=== PATIENT | female | born 1970 ===

== ENCOUNTER 2018-03-25 08:54 | Outpatient (CLI) | payer OTHER ==
--- NOTE | 2018-03-25 12:21 | Diagnostic Imaging Report ---
Indication: Left wrist pain Findings: 3 views of the left wrist were obtained. No acute fractures appreciated. There is evidence of arthrosis with narrowing of the radiocarpal joint and several of the intercarpal joints appear narrowed with the subchondral sclerosis. No malalignment is identified. IMPRESSION: No acute injury appreciated. 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
--- NOTE | 2018-03-25 12:24 | Diagnostic Imaging Report ---
Indication: Foot pain Comparison: None Findings: 3 views of the left foot were obtained. No acute fractures, malalignment, erosions or periostitis are identified. Soft tissues are unremarkable. Impression: No acute findings
--- NOTE | 2018-03-25 12:25 | Diagnostic Imaging Report ---
Indication: Pain Knee pain/trauma 3 views of the right knee were obtained. Findings: No acute fracture, malalignment, or joint effusion are identified. Joint space is relatively well-maintained. Impression: Negative for acute findings.
--- NOTE | 2018-03-25 12:26 | Diagnostic Imaging Report ---
Indication: Hand pain. Findings: 3 views of the left hand were obtained. No acute fracture is identified. 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 IMPRESSION: No acute injury
--- NOTE | 2018-03-25 12:27 | Diagnostic Imaging Report ---
Indication: Chest pain Comparison: None 2 views of the chest obtained. Findings: Cardiomediastinal silhouette and pulmonary vascularity are within normal limits for age. The diaphragmatic contour is smooth and costophrenic angles are sharp. No pleural effusions are identified. The bones are unremarkable. Impression: No acute disease
--- NOTE | 2018-03-25 12:27 | Diagnostic Imaging Report ---
Indication: Right hand pain Findings: 3 views of the right hand were obtained. No acute fractures identified. There is no obvious malalignment within the hand. The soft tissues are unremarkable. IMPRESSION: No acute injury appreciated
--- NOTE | 2018-03-25 12:29 | Diagnostic Imaging Report ---
Indication: Right wrist pain Findings: 3 views of the right wrist were obtained. No acute fractures, erosions or periostitis are identified. Soft tissues are unremarkable. The scapholunate distance appears slightly widened. There may be mild volar tilt of the lunate. Impression: No acute findings. Suggestion of a scapholunate ligament disruption. Please correlate clinically. This this is most likely a degenerative chronic process.
== END 2018-03-25 10:54 | disposition home or self-care (01) ==
LOC: EDBD 08:54 → RAD 08:54
PROVIDERS: ATTEND Internal Medicine Rheumatology
DX: R05 Cough (principal); R07.9 Chest pain, unspecified; M25.572 Pain in left ankle and joints of left foot; M25.541 Pain in joints of right hand; M25.561 Pain in right knee; M25.531 Pain in right wrist
CPT/HCPCS: 71046